=== PATIENT | female | born 1985 | race Caucasian/White ===

== ENCOUNTER 2017-09-20 15:35 | Outpatient (CLI) | payer OTHER ==
[2017-09-20 16:06] LABS: BASOPHILS # (AUTO) 0.1 10^3/uL (0.0-0.1); BASOPHILS % (AUTO) 1.2 %; EOSINOPHILS # (AUTO) 0.1 10^3/uL (0.0-0.7); EOSINOPHILS % (AUTO) 1.9 %; HGB - HEMOGLOBIN 14.2 g/dL (12.0-16.0); LYMPHOCYTES # (AUTO) 1.4 10^3/uL (1.5-3.5); LYMPHOCYTES % (AUTO) 20.6 %; MEAN CORPUSCULAR HGB CONC 33.5 g/dL (32.0-36.0); MEAN CORPUSCULAR VOLUME 89.5 fL (81.0-99.0); MEAN PLATELET VOLUME 7.5 fL (7.9-10.8); MONOCYTES # (AUTO) 0.4 10^3/uL (0.0-1.0); MONOCYTES % (AUTO) 5.3 %; PLT - PLATELET COUNT 264 10^3/uL (130-450); RED BLOOD COUNT 4.74 10^6/uL (4.20-5.40); RED CELL DISTRIBUTION WIDTH 12.9 % (12.0-15.0)
[2017-09-20 16:37] LABS: BILIRUBIN,URINE NEGATIVE (NEGATIVE); GLUCOSE, URINE (UA) NEGATIVE (NEGATIVE); KETONES,URINE (UA) TRACE mg/dL (NEGATIVE); LEUKOCYTE ESTERASE, URINE NEGATIVE (NEGATIVE); NITRITE,URINE NEGATIVE (NEGATIVE); OCCULT BLOOD,URINE NEGATIVE (NEGATIVE); PROTEIN,URINE TRACE mg/dL (NEGATIVE); UROBILINOGEN,URINE 0.2 (NORMAL) E.U./dL (NORMAL)
[2017-09-20 16:45] LABS: BACTERIA,URINE Rare /HPF (None Seen); CLARITY,URINE CLEAR (CLEAR); RBC,URINE 0-5 /HPF (0-5); SQUAMOUS EPITHELIAL CELL,UR FEW Squamous (<= Few)
[2017-09-21 14:46] LABS: HIV AG/AB 4TH GEN NON-REACTIVE (NON-REACTIVE)
[2017-09-21 16:02] LABS: HEPATITIS B SURFACE ANTIGEN NON-REACTIVE (NON-REACTIVE)
== END 2017-09-20 15:36 | disposition home or self-care (01) ==
LOC: LAB 15:35
PROVIDERS: ATTEND Obstetrics & Gynecology
DX: Z36.9 Encounter for antenatal screening, unspecified (principal); O20.0 Threatened abortion
CPT/HCPCS: 36415; 81001; 81599; 84702; 85025; 86592; 86762; 86850; 86900; 86901; 87340; 87389

== ENCOUNTER 2017-09-22 18:15 | Emergency (ER) | payer OTHER ==
--- NOTE | 2017-09-22 18:22 | ED Physician Documentation ---
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 Sent for formal U/S.) Timing - details: Intermittant Associated symptoms: Pelvic pain (mild at times). No: Fever, Vaginal bleeding, Vaginal discharge, Dysuria Review of Systems Constitutional: denies: Fever, Chills GI: denies: Abdominal Pain, Nausea, Vomiting, Diarrhea : reports: LMP (6 weeks ago). denies: Discharge, Irregular menses PD PAST MEDICAL HISTORY - Present Medications Home Medications: Ambulatory Orders Medication Instructions Recorded Confirmed No Known Home Medications [No 09/22/17 09/22/17 Known Home Medications] - Allergies Allergies/Adverse Reactions: Allergies Allergy/AdvReac Type Severity Reaction Status Date / Time No Known Drug Allergies Allergy Verified 09/22/17 18:33 PD ED PE NORMAL - Vitals Vital signs reviewed: Yes - General General: Alert and oriented X 3, No acute distress, Well developed/nourished - Abdomen Abdomen: Normal bowel sounds, Soft, Non tender - Female Female : Deferred - Back Back: No CVA TTP Results - Vitals Vitals: Oxygen O2 Source Room air - Rads (name of study) transabd U/S Radiology: Prelim report reviewed (normal IUP at 6 weeks gestation. ), EMP read contemporaneously PD MEDICAL DECISION MAKING - ED course Complexity details: reviewed results, considered differential (U/S showing IUP, which precluded need for blood tests, so they were cancelled. ), d/w patient Departure - Departure Disposition: 01 Home, Self Care Clinical Impression: Intrauterine normal Qualifiers: Trimester: first trimester Qualified Code(s): Z34.91 - Encounter for supervision of normal , unspecified, first trimester Condition: Stable Record reviewed to determine appropriate education?: Yes Instructions: ED Care Follow-Up: Jesús Tomlinson MD [Primary Care Provider] - Comments: They did see a normal in the uterus on ultrasound. Continue care with Dr. Tomlinson. Discharge Date/Time: 09/22/17 19:29
[2017-09-22] MEDS ORDERED: ONDANSETRON ODT 4 MG TABLET TL STA (18:27)
[2017-09-22 18:34] VITALS: BP 135/71
--- NOTE | 2017-09-22 19:13 | Ultrasound Report ---
EXAM: FIRST TRIMESTER OBSTETRIC ULTRASOUND (Less than 11 weeks) EXAM DATE: 09/22/2017 06:37 PM. CLINICAL HISTORY: Early , eval for IUP. LMP: Unknown. COMPARISONS: None. TECHNIQUE: Transabdominal and transvaginal ultrasound examination with static image documentation. ASSESSMENT: Gestational Sac: Single intrauterine. Mean gestational sac diameter: 23.2 mm = 70 weeks 2 days. Embryo: CRL (crown-rump length) 4.6 mm = 6 weeks 3 days. Cardiac activity: 126 beats per minute. Yolk sac: 3.3 mm. Amniotic fluid: Not accurately assessed at this gestational age. Early placenta: Not visible at this gestational age. Other: No perigestational fluid collection demonstrated. MATERNAL STRUCTURES: Uterus: Anteverted. Unremarkable. Cervix: Closed. Right Ovary/Adnexa: Unremarkable. The ovary measures 3 x 2.2 x 2.7 cm, volume 9.3 cc. Left Ovary/Adnexa: Unremarkable. The ovary measures 2.9 x 1.7 x 1.7 cm, volume 4.4 cc. Free Fluid: None. Other: None. IMPRESSION: 1. Single viable intrauterine at EGA 7 weeks 1 day with KRISTINE 05/10/2018 based on composite m easurements, Referring Provider Line: [phone] SITE ID: [id number]
== END 2017-09-22 19:29 | disposition home or self-care (01) ==
LOC: ED 18:15
DX: Z34.91 Encounter for supervision of normal pregnancy, unspecified, first trimester (principal)
CPT/HCPCS: 76801; 99282; 99283; Q0162; 84702; 85025; 86900; 86901

== ENCOUNTER 2017-10-19 15:05 | Outpatient (CLI) | payer SELFPAY | END 2017-10-19 15:06 | disposition home or self-care (01) | LOC: LAB 15:05 | PROVIDERS: ATTEND Nurse Practitioner Obstetrics & Gynecology | DX: Z13.79 Encounter for other screening for genetic and chromosomal anomalies (principal) | CPT/HCPCS: 36415 ==

== ENCOUNTER 2018-01-01 12:39 | Outpatient (CLI) | payer OTHER ==
--- NOTE | 2018-01-01 16:09 | Ultrasound Report ---
OB ULTRASOUND: 01/01/2018 CLINICAL INDICATION: anatomy. TECHNIQUE: Real-time scanning was performed with branch customer service representative static images obtained. LAST MENSTRUAL PERIOD unknown Clinical Age: 20 weeks 6 days by initial US US Age: 21 weeks 0 days EFW Hadlock: 401 grams EFW% Hadlock: 59% Heart Rate: 140 bpm EDC: 05/15/2018 US EDC: 05/14/2018 BPD Hadlock: 20 weeks 4 days; Mean mm 48 HC Hadlock: 21 weeks 0 days; Mean mm 186 AC Hadlock: 21 weeks 4 days; Mean mm 165 FL Hadlock: 20 weeks 5 days; Mean mm 34 Presentation: variable Placental Location: posterior Cervical Length: TA 6.1 cm Amniotic Fluid: subjectively normal; MVP 3.1 cm FINDINGS There is a single viable intrauterine gestation, in variable position. heart rate is 140 BPM. The placenta is posterior, without evidence of previa. Amniotic fluid volume is subjectively normal, with a deepest pocket of 3.1 cm. By size, the fetus measures 21 weeks 0 day (20 weeks 6 days by an initial sonogram). The following anatomic structures were visualized and appear normal: The intracranial contents, including the ventricles and posterior fossa; the lips and orbits; the cervical and thorasic spine; the heart, including 4-chamber view and outflow tracts, and diaphragm; the abdominal contents, including the stomach, the bilateral kidneys, and urinary bladder, as well as a normal 3-vessel cord insertion; 4 limbs. Imaging of the lumbosacral spine is limited by positioning. IMPRESSION SINGLE VIABLE INTRAUTERINE GESTATION, WITH EXPECTED GROWTH FROM INITIAL SONOGRAM. LIMITED VISUALIZATION OF THE LUMBOSACRAL SPINE, DUE TO POSITIONING. THE REMAINDER OF THE ANATOMIC SURVEY APPEARS UNREMARKABLE. TD: 01/01/2018 15:12 yamilet JAQUEZ
== END 2018-01-01 12:40 | disposition home or self-care (01) ==
LOC: DI 12:39
PROVIDERS: ATTEND Registered Nurse
DX: Z34.82 Encounter for supervision of other normal pregnancy, second trimester (principal)
CPT/HCPCS: 76811

== ENCOUNTER 2018-01-16 11:22 | Outpatient (CLI) | END 2018-01-16 11:23 | disposition home or self-care (01) ==

== ENCOUNTER 2018-03-02 15:08 | Outpatient (CLI) | payer OTHER ==
[2018-03-02 16:23] LABS: HGB - HEMOGLOBIN 11.9 g/dL (12.0-16.0); MEAN CORPUSCULAR HGB CONC 35.6 g/dL (32.0-36.0); MEAN CORPUSCULAR VOLUME 89.8 fL (81.0-99.0); MEAN PLATELET VOLUME 7.3 fL (7.9-10.8); RED BLOOD COUNT 3.71 10^6/uL (4.20-5.40); RED CELL DISTRIBUTION WIDTH 12.5 % (12.0-15.0); WHITE BLOOD COUNT 7.5 x10^3/uL (4.8-10.8)
== END 2018-03-02 15:09 | disposition home or self-care (01) ==
LOC: LAB 15:08
PROVIDERS: ATTEND Registered Nurse
DX: Z34.82 Encounter for supervision of other normal pregnancy, second trimester (principal)
CPT/HCPCS: 36415; 82950; 85027; 86850

== ENCOUNTER 2018-04-24 08:00 | Outpatient (CLI) | payer OTHER | END 2018-04-24 08:01 | disposition home or self-care (01) | LOC: LAB.R 08:00 | PROVIDERS: ATTEND Registered Nurse | DX: Z34.83 Encounter for supervision of other normal pregnancy, third trimester (principal) | CPT/HCPCS: 87081 ==

== ENCOUNTER 2018-05-19 20:26 | Inpatient (IN) | payer OTHER ==
[2018-05-19] MEDS ORDERED: SODIUM CHLORIDE FLUSH 0.9% 10 ML SYRINGE IVP PRN (21:12)
[2018-05-19] MEDS ORDERED: ONDANSETRON 4 MG/2 ML VIAL IVP PRN ×2 (21:12→23:00)
--- NOTE | 2018-05-19 21:34 | HISTORY & PHYSICAL EXAMINATION ---
Admit History - Visit Reason Visit Reason: Contractions - : 1 Parity: 0 Premature: 0 Ectopic: 0 : 0 Care: positive: [facility] Risk/History: positive: None Complications This : positive: None Smoking Status: Never smoker - Mother's Labs Mother's Blood Type: positive: AB Mother's RH: positive: Positive GBS: positive: Group B Step Negative Rubella Status: positive: Immune Meds/Allgy - Home Medications Home Medications: Ambulatory Orders Medication Instructions Recorded Confirmed No Known Home Medications 09/22/17 09/22/17 - Allergies Allergies/Adverse Reactions: Allergies Allergy/AdvReac Type Severity Reaction Status Date / Time No Known Drug Allergies Allergy Verified 09/22/17 18:33 Review of Systems - Constitutional Constitutional: denies: Fatigue, Fever, Chills - Eyes Eyes: denies: Blurred vision, Spots in vision, Dipolpia - Cardiovascular Cariovascular: denies: Irregular heart rate, Palpitations, Chest pain, Edema - Respiratory Respiratory: denies: Cough, Wheezing, Hemoptysis, SOB at rest - Gastrointestinal Gastrointestinal: denies: Abdominal pain, Constipation, Diarrhea, Nausea, Vomiting - Genitourinary Genitourinary: denies: Dysuria, Frequency, Urgency - Integumentary Integumentary: denies: Rash, Pruritis - Psychiatric Psychiatric: denies: Depression, Anxiety, Suicidal Physical - Abdominal Exam Vital Signs: Temp Pulse Resp BP Pulse Ox 36.7 C 94 18 134/94 H 100 05/19/18 20:57 05/19/18 20:57 05/19/18 20:57 05/19/18 20:57 05/19/18 20:57 Contraction Frequency (min/apart): 2-3 Contraction Intensity: positive: Moderate to strong Uterine Resting Tone: positive: Soft - Monitoring Heart Rate Baseline: 150 Strip Review: positive: Category I - Presentation Presentation: positive: Vertex - Vaginal Exam Membranes: positive: Membranes intact Dilation (in cm): 2-3 Effacement (%): 80 Station: positive: -1 Cervical Position: positive: Posterior - Speculum Exam Speculum Exam Performed: positive: No Plan for Labor - Plan For Labor I expect patient to be DC'd or transferred within 96 hours.: Yes Plan for Labor: HPI: This 32yo @ 40.4wks gestation by L=7.1wk U/S presents on 05/19/2018 @ 2030 with c/o contractions q 6-7 min x 24 hours which are preventing her from sleeping. She reports +FM and scant vaginal bleeding/pink discharge. She denies Lof. Upon arrival she was noted to have contractions every 2-4 minutes lasting 90-120 seconds palpating moderate-firm with soft resting tone. SVE 2-3/80/-1, vertex, posterior, medium consistency with intact membranes. She requests epidural for pain management. BP moderately elevated upon arrival 136-147/89-95. She reports intermittent VINCENT over the past 24 hours for which she has not taken anything. She denies visual disturbances, RUQ or epigastric pain and denies edema. Dating criteria: 1.) LMP 05/24/2017 2.) First ultrasound 3.) Serial exams OB History: G1: Current PMHx: Generalized anxiety; Melanoma 2011- regular f/u with negative evaluations. 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 Partner Shayan is an EMT. No ETOH or IVDA. Family Hx: Breast cancer - paternal aunt, maternal aunt; colon cancer - mother; lung cancer - maternal grandfather; Diabetes - maternal grandmother, maternal uncle; Depression - mother, sister; hypertension - father labs: Blood type: AB pos, Antibody neg Hgb 14.2; Hct 42.4; PLT 264 Rubella immune RPR non-reactive HIV non-reactive Hep B non-reactive GC/CT neg 28 week labs: 1 hour GTT 107 Antibody neg Hgb 11.9, Hct 33.3, PLT 221 GBS negative Vaccinations: Tdap 03/12/2018 Influenza- declines Genetic Screening: [place] screen negative; sex Male Ultrasounds: 09/22/2017 initial ultrasound reveals single, viable intrauterine with average CRL c/w 7w1d which is c/w LMP dating making KRISTINE 05/15/2018. 01/01/2018 FAS WNL with exception of poor imaging of lumbosacral spine secondary to positioning. Posterior placenta, no previa. NIKKI WNL. 01/16/2018 completion FAS reveals normal appearance of spine. Physical Exam: A&O x 4 Mood is good Heart RRR w/o M/G/R Lungs CTAB Abdomen gravid, soft, nontender Bilateral LE's no edema Assessment: 32yo @ 40.4wks gestation by L=7.1w U/S Early labor Pond Score - 8 = favorable Membranes intact GBS negative New-onset gestational HTN Plan: Admit to [facility] for active management Epidural per maternal request PIH labs ordered-pending Augment with pitocin with titration per protocol Continuous monitoring Anticipate spontaneous vaginal delivery
[2018-05-19 21:38] LABS: BASOPHILS # (AUTO) 0.1 10^3/uL (0.0-0.1); BASOPHILS % (AUTO) 0.7 %; EOSINOPHILS # (AUTO) 0.2 10^3/uL (0.0-0.7); EOSINOPHILS % (AUTO) 1.9 %; HGB - HEMOGLOBIN 12.9 g/dL (12.0-16.0); LYMPHOCYTES # (AUTO) 1.8 10^3/uL (1.5-3.5); LYMPHOCYTES % (AUTO) 18.6 %; MEAN CORPUSCULAR HEMOGLOBIN 29.6 pg (27.0-31.0); MEAN CORPUSCULAR HGB CONC 34.1 g/dL (32.0-36.0); MEAN CORPUSCULAR VOLUME 86.8 fL (81.0-99.0); MEAN PLATELET VOLUME 7.6 fL (7.9-10.8); MONOCYTES # (AUTO) 0.8 10^3/uL (0.0-1.0); MONOCYTES % (AUTO) 8.2 %; NEUTROPHILS # (AUTO) 6.9 10^3/uL (1.5-6.6); NEUTROPHILS % (AUTO) 70.6 %; PLT - PLATELET COUNT 239 10^3/uL (130-450); RED BLOOD COUNT 4.35 10^6/uL (4.20-5.40); RED CELL DISTRIBUTION WIDTH 14.1 % (12.0-15.0); WHITE BLOOD COUNT 9.8 x10^3/uL (4.8-10.8)
[2018-05-19] MEDS: LACTATED RINGERS 1,000 ML IV SCH (21:45)
[2018-05-19] MEDS ORDERED: fent/BUPIV 2 MCG/0.125% 250 ML EP ONE (21:53)
[2018-05-19 21:57] LABS: URIC ACID 3.9 mg/dL (2.6-7.2)
[2018-05-19] MEDS ORDERED: OXYTOCIN/SODIUM CHLORIDE 500 ML IV SCH (22:00)
--- NOTE | 2018-05-19 22:10 | ANESTHESIA ---
Pre-Anesthesia VS, & Labs - Diagnosis Term labor, IUP - Procedure Labor Epidural placement Vital Signs: Temp Pulse Resp BP Pulse Ox 36.7 C 94 18 134/94 H 100 05/19/18 20:57 05/19/18 20:57 05/19/18 20:57 05/19/18 20:57 05/19/18 20:57 Height 5 ft 8 in Body Mass Index 22.0 - NPO Other Last Fluid Intake: t/o day - Is Patient ?: Yes - Lab Results Current Lab Results: Laboratory Tests 05/19/18 21:25: Uric Acid 3.9, AST 29 05/19/18 21:25: Lactate Dehydrogenase 181 05/19/18 21:25: WBC 9.8, RBC 4.35, Hgb 12.9, Hct 37.8, MCV 86.8, MCH 29.6, MCHC 34.1, RDW 14.1, Plt Count 239, MPV 7.6 L, Neut # (Auto) 6.9 H, Lymph # (Auto) 1.8, [place] # (Auto) 0.8, Eos # (Auto) 0.2, Baso # (Auto) 0.1, Absolute Nucleated RBC 0.00, Nucleated RBC % 0.0 Lab results reviewed: Yes Fish Bones: 05/19/18 21:25 Home Medications and Allergies Active Medications Lactated Ringer's (Lr) 1,000 mls @ 100 mls/hr IV .Q10H JOE Oxytocin/Sodium Chloride (Pitocin/Sodium Chloride) 500 mls @ 1 mls/hr IV TITR JOE; Protocol Ondansetron HCl (Zofran Inj) 4 mg IVP Q4HR PRN PRN Reason: Nausea / Vomiting Sodium Chloride (Normal Saline Flush 0.9%) 10 ml IVP 0100,0900,1700 JOE Sodium Chloride (Normal Saline Flush 0.9%) 10 ml IVP PRN PRN PRN Reason: NEEDED PER PROVIDER ORDERS No Known Home Medications 09/22/17 Allergies/Adverse Reactions: Allergies Allergy/AdvReac Type Severity Reaction Status Date / Time No Known Drug Allergies Allergy Verified 09/22/17 18:33 Anes History & Medical History - Anesthetic History Anesthesia Complications: reports: No previous complications Family history of Anesthesia Complications: Denies Family history of Malignant Hyperthermia: Denies - Medical History Cardiovascular: reports: None Pulmonary: reports: None Gastrointestinal: reports: GERD Musculoskeletal: reports: None Endocrine/Autoimmune: reports: None Blood Disorders: reports: None Smoking Status: Never smoker Psychosocial: reports: No issues indicated - Surgical History Dermatologic: Other (polyps, skin ca removal) - Obstetrical History : 1 Parity: 0 Events: positive: None Complications: positive: None Exam General: Alert, Oriented x3 Dental: WNL Mouth Opening: Greater than 4 Fingerbreadths Neck Mobility: Normal Mallampati classification: I Thyromental Distance: 4-6 cm Plan Anesthesia Type: Epidural Consent for Procedure(s) Verified and Reviewed: Yes Code Status: Attempt Resuscitation ASA classification: 2-Mild systemic disease Is this case an emergency?: No
[2018-05-19] MEDS ORDERED: NALBUPHINE 10 MG/ML AMP IVP PRN (23:00)
[2018-05-19] MEDS ORDERED: fent/BUPIV 2 MCG/0.125% 250 ML EP PRN (23:00)
[2018-05-19] MEDS ORDERED: diphenhydrAMINE INJ 50 MG/ML VIAL IVP PRN (23:00)
[2018-05-19 23:23] LABS: CREATININE,URINE 98.2 mg/dL; PROTEIN/CREATININE RATIO,URINE 0.2 (<=0.2)
[2018-05-20] MEDS: ACETAMINOPHEN 500 MG TABLET PO PRN ×3 (00:10→17:22)
[2018-05-20] MEDS ORDERED: SODIUM CHLORIDE FLUSH 0.9% 10 ML SYRINGE IVP SCH (01:00)
[2018-05-20] MEDS: LACTATED RINGERS 1,000 ML IV SCH (01:35)
[2018-05-20] MEDS ORDERED: LIDOCAINE 1% 50 ML MDV ONE (06:05)
[2018-05-20] MEDS ORDERED: MINERAL OIL LIGHT 10 ML MC ONE (06:05)
[2018-05-20] MEDS ORDERED: miSOPROStol 200 MCG TABLET ONE (06:06)
[2018-05-20] MEDS ORDERED: OXYTOCIN/SODIUM CHLORIDE 250 ML IV ONE (08:20)
[2018-05-20] MEDS ORDERED: WITCH HAZEL/GLYCERIN 1 EACH MED..PAD TOP PRN (08:20)
--- NOTE | 2018-05-20 08:36 | DELIVERY NOTE ---
Delivery Note - Labor Labor: positive: Augmented by oxytocin - Delivery Method Delivery Method: positive: Spontaneous vaginal delivery - Presentation Presentation: positive: Vertex, BHAVESH - left occiput anterior - Nuchal Cord Nuchal Cord: positive: Present, Reduced - Amniotic Fluid Description Amniotic Fluid Description: positive: Particulate meconium - Episiotomy Type Episiotomy Type: positive: None - Laceration Laceration: positive: 1st degree, Vaginal - Suture Suture Type: positive: Vicryl Suture Size: positive: 2-0 - Delivery Outcome Delivery Outcome: positive: Livebirth - [place]: positive: Placed in direct skin contact with mother, Bulb syringe, Stimulated, Warmed, [place] used sex: positive: Male - Cord Cord: positive: 3 vessels - Placenta Placenta: positive: Intact, Spontaneous - Estimated Blood Loss Estimated Blood Loss (in cc): 400 - Post Delivery Events Post Delivery Events: positive: No post delivery events - Delivery Comments (Free Text/Narrative) Delivery Comments (Free Text/Narrative): Labor: This 32yo @ 40.5wks gestation by L=7.1wk U/S presented at 2030 on 05/19/18 in early labor. Cervix was noted to be 2-3/80/-1, vertex position with a khoury score of 8. Epidural placed upon maternal request. Labor was augmented with Pitocin for a max infusion rate of 5mU/min. FHR pattern demonstrated a baseline 140s in a Category I pattern with intermittent patterns of Category II secondary to variable deceleration at the time of SROM. SROM occurred at 0552 and was noted to be a moderate amount of particulate meconium in amniotic fluid and RT was called to be present for delivery. Pt progressed to c/c/+2 and pushing initiated at 0630. : Normal of viable male infant named Devante on 05/20/2018 @ 0730. Nuchal cord x 1 easily reduced. 's were 8/9 at 1 and 5 min respectively. Infant given 30 seconds of blow by O2. The umbilical cord was allowed to stop pulsating at which time it was doubly clamped by CNM and cut by FOB. Cord blood was obtained. Placenta delivered spontaneously and intact at 1735. 3VC. Pitocin administered via IV for hemostasis. EBL 400mL. Fourth stage: Uterine fundus firm and there is no excessive bleeding. The perineum, vagina, and cervix were inspected and found to have minor first degree vaginal laceration which was repaired in standard fashion under sterile conditions. Vaginal examination following repair was completed and tissues well approximated. initiated. Family bonding well. Both mother and baby were left in stable condition.
[2018-05-20] MEDS: DOCUSATE SODIUM 100 MG CAPSULE PO SCH ×2 (09:38→20:46)
[2018-05-20] MEDS: IBUPROFEN 800 MG TABLET PO SCH ×3 (09:38→23:32)
[2018-05-20] MEDS ORDERED: HYDROcod/ACETAM 5/325 MG TABLET PO PRN (21:07)
[2018-05-21] MEDS: ACETAMINOPHEN 500 MG TABLET PO PRN ×2 (01:37→09:20)
[2018-05-21] MEDS: IBUPROFEN 800 MG TABLET PO SCH ×2 (05:18→12:16)
[2018-05-21] MEDS: DOCUSATE SODIUM 100 MG CAPSULE PO SCH (09:20)
--- NOTE | 2018-05-21 12:04 | Discharge Plan ---
Discharge Plan Disposition: 01 Home, Self Care Condition: Good Diet: Regular Activity Restrictions: pelvic rest x6 weeks Shower Restrictions: No Driving Restrictions: No Weight Bearing: Full Weight Instruction Topics: Breastfeed How To, Vaginal After, Exercises Kegel No Smoking: If you smoke, Please STOP! Call for help. Follow-up with: Irasema Moyer CNM, LIBRADO [Provider Admit Priv/Credential] -
--- NOTE | 2018-05-21 12:17 | DISCHARGE SUMMARY ---
"Discharge Summary Admit Date: 05/19/18 Discharge Date: 05/21/18 Discharging Provider: LUKAS Code Status: Attempt Resuscitation Condition at Discharge: Good Discharge Disposition: 01 Home, Self Care Discharge Facility Name: [facility] - DIAGNOSES Admission Diagnoses: SPONTANEOUS LABOR AT TERM Discharge Diagnoses with Status of Each Condition: - HPI History of Present Illness: WENDY ALEXANDER IS A 32 Y/O [id number] WHO PRESENTED IN SPONTANEOUS, ACTIVE LABOR @ TERM. SHE RECEIVED EPIDURAL ANESTHESIA FOR DISCOMFORT & PROGRESSED SPONTANEOUSLY TO COMPLETE DILATATION. SHE DELIVERED VAGINALLY W/O INCIDENT. - CONSULTS | PROCEDURES Consultations: ANESTHESIA Procedures: EPIDURAL PLACEMENT - HOSPITAL COURSE Hospital Course: , Wendy is doing well. She is ambulating & voiding w/o difficulty or discomfort. She is passing flatus & tolerating a regular diet. She is exclusively w/ some nipple discomfort but no disruption in tissue integrity. She reports minimal lochia rubra & no perineal tenderness. She is planning to resume working from home x3 months & her partner, Shayan, will be available to assist her x3 weeks. She is able to fully articulate pp warning s/sx, including pp depression s/sx, and pp aftercare instructions. She is eager to leave the hospital. - ALLERGIES Allergies/Adverse Reactions: Allergies Allergy/AdvReac Type Severity Reaction Status Date / Time No Known Drug Allergies Allergy Verified 09/22/17 18:33 - MEDICATIONS Home Medications: Ambulatory Orders Medication Instructions Recorded Confirmed Ibuprofen [Motrin] 800 mg PO Q6H tablet 05/21/18 - PHYSICAL EXAM AT DISCHARGE General Appearance: positive: No acute distress, Alert Eyes Bilateral: positive: Normal inspection Respiratory: positive: Chest non-tender, No respiratory distress, Breath sounds nml Cardiovascular: positive: Regular rate & rhythm, No murmur, No gallop Abdomen: positive: Non-tender, No distention, Other (FF u-1) Skin: positive: Color nml, No rash, Warm, Dry Extremities: positive: Non-tender, Full ROM, Nml appearance, No pedal edema. negative: Calf tenderness, Tl's sign/cords Neurologic/Psychiatric: positive: Oriented x3, CN's nml (2-12), Motor nml, Sensation nml, Mood/affect nml - LABS Result Diagrams: 05/19/18 21:25 - FOLLOW UP Follow Up: x1 week w/ Irasema Moyer CNM, earlier PRN - TIME SPENT Time Spent in Discharge (Minutes): 15"
[2018-05-21 13:17] VITALS: BP 139/87
== END 2018-05-21 12:20 | disposition home or self-care (01) | DRG 807 ==
LOC: WFO 20:26 → FBP 20:29 → WFO 21:11 → FBP 21:12
PROVIDERS: ADMIT Nurse Practitioner Obstetrics & Gynecology; ATTEND Registered Nurse
PROC: 10E0XZZ Delivery of Products of Conception, External Approach (ICD-10-PCS; principal; 2018-05-20)
DX: O13.4 Gestational [pregnancy-induced] hypertension without significant proteinuria, complicating childbirth (principal); Z37.0 Single live birth; O77.0 Labor and delivery complicated by meconium in amniotic fluid; O76 Abnormality in fetal heart rate and rhythm complicating labor and delivery; O70.0 First degree perineal laceration during delivery; O69.81X0 Labor and delivery complicated by cord around neck, without compression, not applicable or unspecified; Z3A.40 40 weeks gestation of pregnancy; Z85.820 Personal history of malignant melanoma of skin
CPT/HCPCS: 36415; 82570; 83615; 84156; 84450; 84550; 85025; 99213